=== PATIENT | male | born 1980 | race Caucasian/White ===

== ENCOUNTER → 2019-06-01 | Outpatient (CLI) | payer OTHER ==
[~2019-06-01] MED LIST: HYDROCHLOROTH12.5 M1; LIPITOR 20 MG T20 M1; LISINOPRIL20 MG; ZPAK PO
--- NOTE | 2019-06-02 10:16 | TST ---
[facility] [address] [place] [address] TREADMILL STRESS TEST Name: MARCELA SERRA Room: [facility] Do#: [id number] Admission: 06/01/19 Attend Phys: Junior Ewing Discharge: Date of : 78 Date of Service: 06/01/19 1547 Report #: [id number] THIS REPORT FOR: //name// CC: Junior Ewing DO DATE OF SERVICE: 06/01/2019 Resting 12-lead electrocardiogram demonstrates sinus rhythm and the tracing is within normal limits. The patient exercised for 10 minutes and 8 seconds according to a standard [place] protocol, stopping because of fatigue, but denying chest pain. The patient achieved a peak heart rate of 164, 91% of the age predicted maximum. Resting blood pressure was 130/93 with an increased to 160/60 during exercise and falling to 134/70 during the post-exercise phase. There were no ischemic ST-T alterations noted during or post-exercise. Minor nonspecific ST-T changes were observed. There were rare isolated PVCs during exercise, but no significant supraventricular or ventricular arrhythmias. IMPRESSION: 1. Negative treadmill exercise test for provocation of ischemic ST-T alterations. 2. No chest pain provoked by exertion. 3. Appropriate heart rate and systolic blood pressure responses to exercise. 4. No significant arrhythmias noted; rare isolated premature ventricular contractions were observed. 5. Satisfactory level of fitness for age. <ELECTRONICALLY SIGNED> By: Tristen Colón MD, FACC 06/02/19 1016 [id number] Tristen Colón MD, [facility] /nt
== END ==
LOC: M.CRD 13:47
DX: E29.1 Testicular hypofunction (principal)